=== PATIENT | male | born 1965 | race Caucasian/White ===

== ENCOUNTER → 2018-08-26 | Outpatient (CLI) | payer OTHER | LOC: M.CT 07:49 | DX: Z13.6 Encounter for screening for cardiovascular disorders (principal) ==

== ENCOUNTER → 2019-05-24 | Outpatient (CLI) | payer OTHER | LOC: M.MRI 08:58 | DX: G93.89 Other specified disorders of brain (principal) ==

== ENCOUNTER 2019-10-25 04:50 | Emergency (ER) | payer OTHER | END 2019-10-25 07:25 | disposition home or self-care (01) | LOC: M.ERS 04:50 | DX: M79.671 Pain in right foot (principal); I48.91 Unspecified atrial fibrillation; Z86.73 Personal history of transient ischemic attack (TIA), and cerebral infarction without residual deficits ==

== ENCOUNTER 2020-11-11 10:28 | Emergency (ER) | payer OTHER ==
[~2020-11-11] VITALS: Ht 180.3 cm; Wt 92.1 kg
[~2020-11-11 10:28] MED LIST: ASPIR 8181 M1 PO; ATORVASTATIN CA80 MG PO; CELEXA 20 MG TA20 MG PO; ELIQUIS5 M1 PO; REPATHA SY140 MG/1 M; WELLBUTRIN XL150 MG PO
[2020-11-11 11:42] VITALS: BP 96/77
== END 2020-11-11 11:44 | disposition home or self-care (01) ==
LOC: M.ERS 10:28
DX: M70.31 Other bursitis of elbow, right elbow (principal); I48.91 Unspecified atrial fibrillation; Z86.73 Personal history of transient ischemic attack (TIA), and cerebral infarction without residual deficits; Y93.89 Activity, other specified